=== PATIENT | male | born 1950 | race Caucasian/White ===

== ENCOUNTER 2019-09-17 06:07 | Day surgery (SDC) | payer OTHER ==
[~2019-09-17] VITALS: Ht 167.6 cm; Wt 75.4 kg
[~2019-09-17 06:07] MED LIST: Aspirin EC81 MG PO; LISI20 PO; METF500; OMEGA POWER 11050 MG PO
--- NOTE | 2019-09-17 09:09 | NUR ---
09/17/19908 Mitzi Benitez S PT. VERY SLEEPY. PT. KEEPS EYES CLOSED UNTIL ASKED TO OPEN THEM. PT. ABLE TO SIT UP TO SIDE OF BED & INTO RECLINER WITH SBA. PT. A LITTLE UNSTEADY. PT. DOES ANSWER QUESTIONS APPROPRIATELY WHEN SPOKE TO. PT. DIDN'T WANT HIS BACK YET, PT. STATES "GIVE IT SOME TIME." PT. STATES "TRYING TO WAKE UP." POLAR VIOLETA INTACT TO RIGHT KNEE & RIGHT KNEE ELEVATED UP IN RECLINER WITH FOOT REST UP & UP ON PILLOW. PT. WITH WATER & SNACKS AT HIS SIDE. CALL LIGHT IS WITHIN REACH. V.S.S.
== END 2019-09-17 10:34 | disposition home or self-care (01) ==
LOC: ORSCSDS 06:07
PROVIDERS: Orthopaedic Surgery
PROC: 0SBC4ZZ Excision of Right Knee Joint, Percutaneous Endoscopic Approach (ICD-10-PCS; principal; 2019-09-17 07:30)
DX: S83.231A Complex tear of medial meniscus, current injury, right knee, initial encounter (principal); M17.11 Unilateral primary osteoarthritis, right knee; E11.9 Type 2 diabetes mellitus without complications; I10 Essential (primary) hypertension; E78.00 Pure hypercholesterolemia, unspecified; Z79.84 Long term (current) use of oral hypoglycemic drugs; Z79.899 Other long term (current) drug therapy
CPT/HCPCS: 82947; J0171; J1100; J1885; J2370; J2405; J2704; J3010; J3370; J7120

== ENCOUNTER → 2024-06-28 | Outpatient (CLI) | payer OTHER ==
[~2024-06-28] MED LIST changes: +CLOP75 PO; +HYDCHL25 PO; -METF500; +METF500 PO; +ZESTORETIC 20-1 EACH PO
[2024-06-29 13:01] LABS: Stool Occult Bld Immuno 1 Negative (NEGATIVE)
== END | disposition home or self-care (01) ==
LOC: LAB SHORT 15:27 → LAB 15:27
PROVIDERS: Family Medicine
DX: Z12.11 Encounter for screening for malignant neoplasm of colon (principal)
CPT/HCPCS: G0328

== ENCOUNTER 2025-01-03 06:24 | Day surgery (SDC) | payer OTHER ==
[~2025-01-03] VITALS: Ht 170.2 cm; Wt 74.6 kg
[~2025-01-03 06:24] MED LIST changes: +NS 500 ML IV ONE
[2025-01-03] MEDS ORDERED: CeFAZolin Sodium 2,000 MG VIAL ONE (06:55)
[2025-01-03] MEDS ORDERED: GLIM2 (07:03)
[2025-01-03] MEDS ORDERED: ATOR80 (07:03)
[2025-01-03] MEDS ORDERED: NS 500 ML IV ONE (07:16)
--- NOTE | 2025-01-03 07:21 | NUR ---
01/03/25 0721 Monae Villarreal LOCAL INJECTION OF LEFT HAND START AT 0721. PT TOLERATED WELL. CALL LIGHT IN HAND.
[2025-01-03] MEDS ORDERED: Midazolam HCl 1MG / ML 2ML Vial ONE (07:43)
[2025-01-03] MEDS ORDERED: propofoL 20 ML IV ONE (07:43)
[2025-01-03 08:08] VITALS: BP 128/90
--- NOTE | 2025-01-03 08:13 | NUR ---
01/03/[address] AT BEDSIDE
[2025-01-03] MEDS ORDERED: Dexamethasone Sod Phos 10 MG/ML 1ML VIAL ONE (08:14)
== END 2025-01-03 08:38 | disposition home or self-care (01) ==
LOC: ORSCSDS 06:24
PROVIDERS: Orthopaedic Surgery
PROC: 01N50ZZ Release Median Nerve, Open Approach (ICD-10-PCS; principal; 2025-01-03 08:00)
DX: G56.02 Carpal tunnel syndrome, left upper limb (principal); I10 Essential (primary) hypertension; K21.9 Gastro-esophageal reflux disease without esophagitis; E11.9 Type 2 diabetes mellitus without complications; Z79.82 Long term (current) use of aspirin; Z79.84 Long term (current) use of oral hypoglycemic drugs; Z79.899 Other long term (current) drug therapy
CPT/HCPCS: 82947; J0690; J1100; J2250; J2704; J7040